=== PATIENT | female | born 1995 | race African-American/Black ===

== ENCOUNTER 2018-08-14 02:44 | Emergency (ER) | payer OTHER ==
[~2018-08-14] VITALS: Ht 157.5 cm; Wt 50.0 kg
[2018-08-14 02:46] VITALS: Ht 157.5 cm; Wt 50.0 kg
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
== END 2018-08-14 03:31 | disposition home or self-care (01) ==
LOC: E/R 02:44
DX: T59.891A Toxic effect of other specified gases, fumes and vapors, accidental (unintentional), initial encounter (principal)
CPT/HCPCS: 99282